=== PATIENT | female | born 1985 | race Caucasian/White ===

== ENCOUNTER → 2016-08-04 | Outpatient (CLI) | payer OTHER ==
[~2016-08-04] MED LIST: ACET-1256 PO; BUPR-79 PO; OXYC1TAB3 PO; TRAM-10 PO
== END | disposition home or self-care (01) ==
LOC: C.LAB 10:38
PROVIDERS: ATTEND Family Medicine
DX: N91.2 Amenorrhea, unspecified (principal)

== ENCOUNTER → 2016-08-10 | Outpatient (CLI) | payer OTHER | END | disposition home or self-care (01) | LOC: C.LAB 12:02 | PROVIDERS: ATTEND Family Medicine | DX: Z34.90 Encounter for supervision of normal pregnancy, unspecified, unspecified trimester (principal) ==

== ENCOUNTER → 2016-09-01 | Outpatient (CLI) | payer OTHER ==
[~2016-09-01] MED LIST changes: -OXYC1TAB3 PO; -TRAM-10 PO
[2016-09-01 17:32] LABS: URINE APPEARANCE CLEAR (CLEAR); URINE BILIRUBIN NEG (NEG); URINE COLOR YELLOW; URINE NITRITE NEG (NEG); URINE PH 7.5 (4.5-7.5); URINE SPECIFIC GRAVITY 1.007 (1.000-1.030); UROBILINOGEN NEG (NEG)
[2016-09-01 17:36] LABS: MANUAL MICROSCOPIC REQUIRED? NO; REVIEW REQ? NO
== END | disposition home or self-care (01) ==
LOC: C.LABSPEC 16:46
PROVIDERS: ATTEND Obstetrics & Gynecology
DX: Z34.81 Encounter for supervision of other normal pregnancy, first trimester (principal)

== ENCOUNTER → 2016-09-06 | Outpatient (CLI) | payer OTHER ==
[2016-09-06 10:21] LABS: BASO % 0.2 %; BASO ABS # 0.02 K/uL (0-0.2); COMPLETE YES; EOS % 0.9 %; HEMATOCRIT 40.7 % (37-47); IG% 0.2 %; LYMPH % 16.1 %; LYMPH ABS # 1.36 K/uL (1.2-3.4); MEAN CELL VOLUME 90.8 fL (80-100); MEAN CORPUSCULAR HEMOGLOBIN 30.4 pg (25-34); MEAN CORPUSCULAR HGB CONC 33.4 g/dl (32-36); MEAN PLATELET VOLUME 9.9 fL (7.4-10.4); MONO % 6.6 %; PLATELET COUNT 240 K/uL (130-400); RED BLOOD COUNT 4.48 M/uL (4.2-5.4); WHITE BLOOD COUNT 8.46 K/uL (4.8-10.8)
[2016-09-08 00:49] LABS: CHLAMYDIA TRACH RNA*** NOT DETECTED (NOT DETECTED); GC (NEIS GONORRHOEAE)RNA** NOT DETECTED (NOT DETECTED)
== END | disposition home or self-care (01) ==
LOC: C.LAB 09:18
PROVIDERS: ATTEND Obstetrics & Gynecology
DX: O09.291 Supervision of pregnancy with other poor reproductive or obstetric history, first trimester (principal)

== ENCOUNTER → 2016-09-06 | Outpatient (CLI) | payer OTHER | END | disposition home or self-care (01) | LOC: C.PAPS 15:08 | PROVIDERS: ATTEND Obstetrics & Gynecology | DX: Z34.81 Encounter for supervision of other normal pregnancy, first trimester (principal) ==

== ENCOUNTER → 2017-01-23 | Outpatient (CLI) | payer OTHER ==
[~2017-01-23] MED LIST changes: +PRENTAB26 PO
[2017-01-23 14:38] LABS: URINE APPEARANCE CLEAR (CLEAR); URINE BILIRUBIN NEG (NEG); URINE COLOR DK YELLOW; URINE EPITHELIAL CELL AUTO 20-30 /lpf (0-5); URINE NITRITE NEG (NEG); URINE SPECIFIC GRAVITY 1.021 (1.000-1.030); UROBILINOGEN NEG (NEG)
[2017-01-23 14:39] LABS: MANUAL MICROSCOPIC REQUIRED? NO; REVIEW REQ? YES
== END | disposition home or self-care (01) ==
LOC: C.LABSPEC 13:46
PROVIDERS: ATTEND Obstetrics & Gynecology
DX: O09.293 Supervision of pregnancy with other poor reproductive or obstetric history, third trimester (principal)

== ENCOUNTER → 2017-02-02 | Outpatient (CLI) | payer OTHER ==
[2017-02-02 13:14] LABS: HEMATOCRIT 38.8 % (37-47)
[2017-02-02 14:53] LABS: CHOLESTEROL/HDL RATIO 2.8
== END | disposition home or self-care (01) ==
LOC: C.LAB 10:10
PROVIDERS: ATTEND Obstetrics & Gynecology
DX: O09.293 Supervision of pregnancy with other poor reproductive or obstetric history, third trimester (principal); Z3A.00 Weeks of gestation of pregnancy not specified

== ENCOUNTER → 2017-03-21 | Outpatient (CLI) | payer OTHER | END | disposition home or self-care (01) | LOC: C.LABSPEC 14:45 | PROVIDERS: ATTEND Obstetrics & Gynecology | DX: Z34.83 Encounter for supervision of other normal pregnancy, third trimester (principal) ==

== ENCOUNTER 2017-04-14 07:27 | Inpatient (IN) | payer OTHER ==
[~2017-04-14] VITALS: Ht 160 cm; Wt 73.2 kg
[~2017-04-14 07:27] MED LIST changes: -PRENTAB26 PO
[2017-04-14 08:00] VITALS: BMI 28.6
[2017-04-14] MEDS ORDERED: PRENTAB26 PO (08:04)
[2017-04-14] MEDS ORDERED: LACTATED RINGER'S 1000ML 500 ML IV PRN ×2 (08:28→15:15)
[2017-04-14] MEDS ORDERED: PENICILLIN G POTASSIUM IV 3 MU in DEXTROSE 5% 100ML 100 ML IV PRN (08:30)
[2017-04-14] MEDS ORDERED: OXYTOCIN 30 UNITS/500ML NSS IV PRN ×2 (08:30→17:15)
[2017-04-14] MEDS ORDERED: PENICILLIN G POTASSIUM IV 6 MU in DEXTROSE 5% 250ML 250 ML IV ONE (08:45)
[2017-04-14] MEDS ORDERED: IV FLUIDS COMPLETED PRN (09:15)
[2017-04-14 09:16] LABS: HEMATOCRIT 38.4 % (37-47); MEAN CELL VOLUME 91.4 fL (80-100); MEAN CORPUSCULAR HEMOGLOBIN 31.2 pg (25-34); MEAN CORPUSCULAR HGB CONC 34.1 g/dl (32-36); MEAN PLATELET VOLUME 10.5 fL (7.4-10.4); PLATELET COUNT 160 K/uL (130-400); WHITE BLOOD COUNT 9.05 K/uL (4.8-10.8)
[2017-04-14 10:17] VITALS: Ht 160 cm; Wt 73.2 kg
[2017-04-14] MEDS ORDERED: BUPIVACAINE 0.25% 30 ML VIAL ONE (14:17)
[2017-04-14] MEDS ORDERED: FENTANYL 2MCG/ML ROPIV 1.25MG/ML 100ML BAG EPI ONE (14:17)
[2017-04-14] MEDS ORDERED: EpHEDrine SULFATE INJ 50 MG/ML AMP ONE (14:17)
[2017-04-14] MEDS ORDERED: FENTANYL CITRATE INJ 50 MCG/1 ML 2 ML VIAL ONE (14:18)
[2017-04-14] MEDS ORDERED: EpHEDrine SULFATE INJ 50 MG/ML AMP IV PRN (15:15)
[2017-04-14] MEDS ORDERED: NALBUPHINE HCL INJ 10 MG/ML AMP IV PRN (15:15)
[2017-04-14] MEDS ORDERED: DiphenhydrAMINE HCL 50 MG/ML VIAL IV PRN (15:15)
[2017-04-14] MEDS ORDERED: ONDANSETRON INJ 2 MG/ML 2 ML VIAL IV PRN (15:15)
[2017-04-14] MEDS ORDERED: NALOXONE HCL INJ 1 MG in SODIUM CHLORIDE 0.9% 1000ML 1,000 ML IV PRN (15:15)
[2017-04-14] MEDS ORDERED: NALOXONE HCL INJ 0.4 MG/1 ML VIAL/CARP IV PRN (15:15)
[2017-04-14] MEDS ORDERED: FENTANYL 2MCG/ML ROPIV 1.25MG/ML 100ML BAG EPI PRN (15:15)
--- NOTE | 2017-04-14 17:06 | Vaginal Delivery Summary ---
Vaginal Delivery Summary 31 yo female EGA of 39+6 weeks presented for induction of labor for borderline AC. Pt progressed to complete under epidural anesthesia and then began to push, delivering a viable male from the ROMY position. No nuchal cord. Nose and mouth suctioned, a spontaneous cry was heard, and the was placed onto the mother's abdomen for stimulation. Delayed cord clamping was performed at the 30 second silver, then double clamped and cut. Cord blood obtained. The placenta was then delivered spontaneously intact with a three-vessel cord. Pitocin was given and the uterus became firm. The vagina was cleared of all clots and debris. The cervix, vagina, and perineum were inspected and a first-degree vaginal laceration was noted. The laceration was repaired in standard fashion with 3-O chromic. Excellent hemostasis was noted. Sponge, instrument, and needle counts were correct x2 at the conclusion of delivery. The mother and baby began recovery in the room, both in stable and good condition. APGARs were 9 and 9. EBL 200 mL. - Yaneli, PGY1 Resident Tracking Resident Involvement: Resident Care Provided Care Provided: OB Delivery (Delivery note)
[2017-04-14] MEDS ORDERED: DIPHTHERIA/TETANUS/PERTUSSIS 0.5 ML SYR/VIAL IM. ONE (17:15)
[2017-04-14] MEDS ORDERED: LANOLIN OINT EXT PRN ×2 (17:15)
[2017-04-14] MEDS ORDERED: ACETAMINOPHEN 325 MG TAB PO PRN (17:15)
[2017-04-14] MEDS ORDERED: BENZOCAINE 20% AER SPR 82.5 GM CAN EXT PRN (17:15)
[2017-04-14] MEDS ORDERED: HYDROCORTISONE ACETATE 25 MG SUPP PR PRN (17:15)
[2017-04-14] MEDS ORDERED: SUPERCREAM 0.870 % 15GM JAR EXT PRN (17:15)
--- NOTE | 2017-04-14 18:49 | Anesthesia Procedure Note ---
Anesthesia Epidural Removal Nt Date & Time Apr 14, 2017 at 18:49 Vital Signs Pain Intensity: 0.0 Notes Mental Status: alert / awake / arousable, participated in evaluation Nausea / Vomiting: adequately controlled Pain: adequately controlled Airway Patency, RR, SpO2: stable & adequate BP & HR: stable & adequate Hydration State: stable & adequate Neuraxial Anesthesia: was administered Anesthetic Complications: no major complications apparent, pt satisfied with anesthetic care Epidural: removed without complications, with tip intact
[2017-04-14] MEDS: DOCUSATE SODIUM 100 MG CAP PO SCH (20:00)
[2017-04-14 20:30] VITALS: BP 112/51; PULSE 73; TEMP 36.8
[2017-04-14] MEDS: IBUPROFEN 600 MG TAB PO PRN (21:00)
--- NOTE | 2017-04-14 23:48 | DELIVERY SUMMARY ---
DATE OF OPERATION: 04/14/2017 The patient is a 31-year-old 4, para 2-0-1-2 white female, EDC of 04/15/2017, who presented for induction of labor for multiparity gestational diabetes mellitus and GBS carrier status. She was begun on Pitocin and membranes ruptured after 2 doses of penicillin were administered. She then progressed quickly to full dilation and pushed effectively over intact perineum for delivery of a viable male . Apgars 9 and 9. Placenta was expressed intact with a 3-vessel cord. A first degree vaginal laceration was repaired with 3-0 chromic in the usual fashion. Blood loss was 200 mL. bleeding was controlled with IV dilute Pitocin. Mother and were doing well after delivery. I attest to the content of the Intraoperative Record and any orders documented therein. Any exception s are noted below.
[2017-04-14 23:50] VITALS: BP 105/67; PULSE 69; TEMP 36.5
[2017-04-15] MEDS: IBUPROFEN 600 MG TAB PO PRN ×4 (01:11→19:44)
[2017-04-15 04:45] VITALS: BP 112/68; PULSE 73; TEMP 36.7
--- NOTE | 2017-04-15 06:23 | Progress Note ---
Subjective Apr 15, 2017. Subjective conversation w/ patient, physical exam, chart review, lab review Ambulation: ambulating normally Voiding: no voiding problems Passing Gas: Yes Diet Tolerance: Regular Diet Lochia: Small Feeding Type: Breast Feeding Pain: Occasional low cramping Comment: Found pt resting comfortably in bed, denies any particular concerns. Review of Systems Constitutional: No fever, No chills Respiratory: No cough, No shortness of breath Cardiac: No chest pain, No edema Abdomen: No nausea, No vomiting, No diarrhea Female : No dysuria Objective Vital Signs Date Time Temp Pulse Resp B/P (MAP) Pulse Ox O2 Delivery O2 Flow Rate FiO2 04/15/17 04:45 36.7 73 20 112/68 04/14/17 23:50 36.5 69 18 105/67 04/14/17 23:50 Room Air 04/14/17 20:30 36.8 73 20 112/51 Physical Exam General Appearance: WELL-APPEARING, WD/WN, NO APPARENT DISTRESS Respiratory/Chest: lungs clear, normal breath sounds Cardiovascular: regular rate, rhythm, no edema Abdomen: normal bowel sounds, non tender, soft Fundus: Firm, Non-Tender, Relation to Umbilicus (at umbilicus) Extremities: normal range of motion, no pedal edema, no calf tenderness Laboratory Results Last 24 Hours Test 04/14/17 08:38 04/15/17 06:14 White Blood Count 9.05 K/uL Red Blood Count 4.20 M/uL Hemoglobin 13.1 g/dL Hematocrit 38.4 % Mean Corpuscular Volume 91.4 fL Mean Corpuscular Hemoglobin 31.2 pg Mean Corpuscular Hemoglobin Concent 34.1 g/dl RDW Standard Deviation 44.2 fL RDW Coefficient of Variation 13.4 % Platelet Count 160 K/uL Mean Platelet Volume 10.5 fL Assessment and Plan Post- Day#: 1 Continue Routine Care: Resident Physician Supervision Note: I was present with Dr. Constantino during the history and exam. I discussed the case with the resident and agree with the findings and plan as documented in the note. Any exceptions or clarifications are listed here: [None] Documented By: Tania Scherer 31F s/p IOL for GDM, now PPD #1. - Blood type O positive. GBS positive, s/p abx x 2. Rubella immune. - Vital signs reviewed and stable. - Pain controlled with motrin.. - No leg swelling or tenderness on calf palpation. Encourage ambulation. - Encourage breast feeding. - Hemoglobin pre-delivery 13.1, post-delivery pending this am. Bleeding has improved. Continue to monitor clinically. - Continue routine post-vaginal delivery care. - Pt agreed with above plan, all current questions answered. Ricardo Constantino MD, PGY1 Loan Analyst Tracking Resident Involvement: Resident Care Provided Care Provided: OB Delivery (OB rounds)
[2017-04-15 06:40] LABS: HEMATOCRIT 38.9 % (37-47)
[2017-04-15] MEDS: DOCUSATE SODIUM 100 MG CAP PO SCH ×2 (07:25→19:44)
[2017-04-15] MEDS: PRENATAL VITAMIN TAB PO SCH (07:25)
[2017-04-15 07:29] VITALS: BP 111/73; PULSE 67; TEMP 36.8
[2017-04-15 11:53] VITALS: BP 110/71; TEMP 36.8
[2017-04-15 15:22] VITALS: BP 107/70; PULSE 75; TEMP 36.8
[2017-04-15] MEDS ORDERED: BISACODYL 5 MG TABEC PO SCH (20:00)
[2017-04-15 23:40] VITALS: BP 100/65; PULSE 66; TEMP 36.8
[2017-04-16] MEDS ORDERED: BISACODYL 10 MG SUPP PR PRN (07:00)
[2017-04-16 07:25] VITALS: BP 106/70; PULSE 76; TEMP 36.8
[2017-04-16] MEDS: DOCUSATE SODIUM 100 MG CAP PO SCH (07:43)
[2017-04-16] MEDS: PRENATAL VITAMIN TAB PO SCH (07:43)
--- NOTE | 2017-04-16 09:35 | Progress Note ---
Subjective Apr 16, 2017. Subjective conversation w/ patient, physical exam Ambulation: ambulating normally Voiding: no voiding problems Passing Gas: Yes Diet Tolerance: Regular Diet Lochia: Moderate Feeding Type: Breast Feeding Review of Systems Constitutional: No problem reported Respiratory: No problem reported Cardiac: No problem reported Breast: No problem reported Abdomen: No problem reported Female : No problem reported Objective Vital Signs Date Time Temp Pulse Resp B/P (MAP) Pulse Ox O2 Delivery O2 Flow Rate FiO2 04/16/17 07:25 36.8 76 18 106/70 04/16/17 07:25 Room Air 04/15/17 23:40 36.8 66 18 100/65 04/15/17 23:40 Room Air 04/15/17 15:22 36.8 75 20 107/70 04/15/17 15:15 Room Air 04/15/17 11:53 36.8 18 110/71 Physical Exam General Appearance: WELL-APPEARING, NO APPARENT DISTRESS Respiratory/Chest: no respiratory distress Cardiovascular: regular rate, rhythm Abdomen: non tender, soft Fundus: Firm Extremities: normal inspection Assessment and Plan Post- Day#: 2 Continue Routine Care: Doing well . Discharge to home. Followup in office 6w. Discharge instructions reviewed.
--- NOTE | 2017-04-16 09:36 | Discharge Instructions ---
Discharge Instructions Date of Service Apr 16, 2017. Admission Reason for Admission: Induction Discharge Discharge Diagnosis / Problem: vaginal delivery Discharge Goals Goal(s): Routine recovery after delivery Activity Recommendations Activity Limitations: per Instructions/Follow-up section . Instructions / Follow-Up Instructions / Follow-Up ACTIVITY RECOMMENDATIONS: * Gradual return to full activity over the next 2-3 weeks. * No lifting - nothing heavier than baby over the next 2-3 weeks. * Do not engage in vigorous exercise, sexual activity or sports until cleared by your physician. * Do not drive or operate any motorized equipment until cleared by your physician. * You may shower/bathe daily. MEDICATIONS: For discomfort or pain, you may use Acetaminophen (Tylenol), Ibuprofen (Advil), or Naproxen (Aleve) following the package directions. For constipation you may use Colace following the package directions. BREAST CARE: If you are not breast feeding: * Wear a supportive bra 24 hours a day for one to two weeks. * Avoid stimulating your breasts and nipples as much as possible during the first few weeks after delivery. * When taking a shower, have the warm water hit your back, not breasts. * When your breasts feel full, apply ice packs. Usually three to four times a day helps ease the discomfort. * Take a mild pain medication (Tylenol / Motrin) when you are uncomfortable. If breast feeding: * Use breast milk to lubricate nipples. Lansinoh cream may be used for sore nipples. You do not need to remove cream prior to breast feeding. If using a different brand of cream, check the label for directions regarding removal of cream prior to nursing. * Wear a supportive bra. * If having problems with breasts or breast feeding, call a farm consultant or your health care provider. EPISIOTOMY CARE: After delivery, if you have an episiotomy (stitches), the following steps will ease discomfort and aid healing. * For the first 24 hours after delivery, place ice packs next to your episiotomy to help reduce swelling. * After the first 24 hour-period, sitz baths, either portable or in the tub, are suggested. A shower with a shower arm sprayed over the episiotomy may be comforting. * Yuliana care should be done after each voiding and bowel movement. Squirt warm water from a plastic bottle over the perineum (region of the body between the anus and urinary opening) and pat dry. * Use Dermoplast to ease discomfort. Shake container. [place] directly over the episiotomy. Place a Tucks on a clean sanitary pad next to your episiotomy. SPECIAL CARE INSTRUCTIONS: When you are discharged from the hospital, it is important for you to follow the instructions listed below: * During the first week at home, you should be able to care for yourself and your baby. In addition, the usual light household activities are encouraged. * Limit your activities to the way you feel. Do not try to clean the house or move furniture. Be sensible. * If you actively engage in sports and have done so up until the time of your delivery, you may resume these activities as soon as you feel able. This may take up to one month or even longer. Use good judgment. * Continue to take your vitamins for at least six weeks after the of your baby. * Your diet need not be limited unless you were on a special diet before your delivery. Breast-feeding mothers need around 2500 calories per day and at least 64-80 ounces of fluid per day (8 to 10 glasses). * You should eat foods from the four major food groups. Crash diets or fad diets are to be avoided. Eating lean meats, fresh fruits and vegetables, low-fat dairy products, high fiber foods and a regular exercise program, will help you get back to your pre- weight without putting your health at risk. * Constipation is sometimes a problem after delivery. Take a mild laxative as needed. If breast feeding, Milk of Magnesia is acceptable to use. You may use a suppository or Fleets enema if no episiotomy. * A daily shower or tub bath is suggested. Be sure to thoroughly and gently dry the perineum. * A bloody vaginal discharge will usually continue until around four weeks post . A small amount of bleeding may continue for as long as six weeks. Vaginal discharge changes from the bright red bleeding after delivery to pink then brownish and finally yellowish-pink before becoming white and disappearing. * Bleeding may increase with activity. Your first period may come in 4-8 weeks. If you are breast feeding, your period may be delayed even longer. * [place] (sex) can begin whenever both you and your partner feel comfortable and do not have any form of genital infection. It is recommended that you wait at least six weeks for internal and external healing to occur. If you have questions, please talk to your health care practitioner. A condom should be used to prevent infection and . * Foreplay, gentle intercourse and lubrication is very important the first several times to prevent pain. A water-based lubricant such as K-Y jelly or Astroglide may be used. * If you have RH negative blood and your baby is RH positive, you will receive RHOGAM by injection prior to discharge. The nurse will give you a card to keep with you that has the date and place that you received RHOGAM after delivery. * During your care, you had a Rubella screen done to check for the presence of rubella antibodies in your blood. If your test was negative, you will receive a Rubella vaccine prior to discharge. This vaccine may cause a fever, soreness at the injection site and flu-like symptoms. If these symptoms persist, notify your health care practitioner. is not advised for one month after a Rubella vaccine. * Verbalizes understanding of car seat law as reviewed with patient nursing. * Car Seat hand-out given and reviewed with patient by nursing. * Shaken baby information reviewed with patient by nursing. Call you doctor if: * Heavy bleeding (saturating several pads an hour) or passing clots the size of your fist. * A fever >101 degrees F (38.3 degrees C) on two occasions four hours apart and /or chills. * Unusual pain in the pelvic or vaginal areas. * "Baby Blues" lasting longer than two weeks. If you have any questions or concerns, call your health care practitioner at . FOLLOW UP VISIT: * Please call the office at to schedule a 6 week examination. It is important you keep this appointment. It is important for you to make arrangements for either yearly or twice yearly check-ups thereafter. Current Hospital Diet Patient's current hospital diet: Regular OB Diet Discharge Diet Recommended Diet: Regular OB Diet Pending Studies Studies pending at discharge: no Laboratory Results Lipid Panel Test 02/02/17 10:31 Range/Units Triglycerides Level 106 0-150 mg/dl Cholesterol Level 218 H 0-200 mg/dl HDL Cholesterol 79 mg/dl Cholesterol/HDL Ratio 2.8 LDL Cholesterol, Calculated 118 mg/dl Medical Emergencies . Who to Call and When: Medical Emergencies: If at any time you feel your situation is an emergency, please call 911 immediately. . Non-Emergent Contact Non-Emergency issues call your: Primary Care Provider, Safety Lead . . "Provider Documentation" section prepared by Esthela Sparrow. . VTE Core Measure Inpt VTE Proph given/why not?: Treatment not indicated
[2017-04-16 16:20] VITALS: BP 110/72; PULSE 97; TEMP 37
[2017-04-16 17:05] VITALS: BP_DIAS 72; PULSE 97; TEMP 37
== END 2017-04-16 17:05 | disposition home or self-care (01) | DRG 775 ==
LOC: C.LD 07:27 → C.OBG 19:19
PROVIDERS: ADMIT Obstetrics & Gynecology; ATTEND Obstetrics & Gynecology
PROC: 10E0XZZ Delivery of Products of Conception, External Approach (ICD-10-PCS; principal; 2017-04-14)
PROC: 3E033VJ Introduction of Other Hormone into Peripheral Vein, Percutaneous Approach (ICD-10-PCS; principal; 2017-04-14)
PROC: 0HQ9XZZ Repair Perineum Skin, External Approach (ICD-10-PCS; principal; 2017-04-14)
DX: O24.429 Gestational diabetes mellitus in childbirth, unspecified control (principal); O70.0 First degree perineal laceration during delivery; Z3A.39 39 weeks gestation of pregnancy; O99.824 Streptococcus B carrier state complicating childbirth; Z37.0 Single live birth

== ENCOUNTER → 2017-10-18 | Outpatient (CLI) | payer OTHER ==
[~2017-10-18] MED LIST changes: +PRENTAB26 PO
== END | disposition home or self-care (01) ==
LOC: C.LAB 15:37
PROVIDERS: ATTEND Family Medicine
DX: N39.0 Urinary tract infection, site not specified (principal)

== ENCOUNTER → 2017-11-28 | Outpatient (CLI) | payer OTHER ==
--- NOTE | 2017-11-28 13:59 | DIAGNOSTIC IMAGING REPORT ---
MRI OF THE BILATERAL TEMPOROMANDIBULAR JOINTS WITHOUT CONTRAST CLINICAL HISTORY: Left-sided temporomandibular joint pain. COMPARISON STUDY: No previous studies for comparison. TECHNIQUE: Utilizing a 1.5 Kathi magnet and dedicated coil, multiplanar, multi echo imaging of the bilateral temporomandibular joints was performed without intravenous contrast in the closed and open mouth positions. FINDINGS: Right temporomandibular joint: Alignment of the right temporomandibular joint is anatomic. The temporomandibular joint disc appears diminutive with increased signal. This suggests a disc tear. There is no disc dislocation. Alignment on the open-mouth view is within normal limits. There is no significant osteoarthritis of the right temporomandibular joint. Left temporomandibular joint: There is abnormal morphology of the left mandibular condyle with flattening. This suggests osteoarthritis. In closed mouth position, the disc is dislocated anteriorly without recapture during open-mouth. The disc is slightly diminished. This may reflect a tear. IMPRESSION: Right temporomandibular joint: 1. Diminutive disc with increased signal which suggests a disc tear. 2. No disc dislocation. Left temporomandibular joint: 1. Anterior dislocation of the disc in closed mouth position without recapture in open-mouth position. 2. Abnormal morphology of the left mandibular condyle with flattening which suggests osteoarthritis. 3. Slightly diminutive disc which suggests a tear. Electronically signed by: Bijan Carranza M.D. 11/28/2017 1:58 PM Dictated Date/Time: 11/28/2017 1:43 PM
== END | disposition home or self-care (01) ==
LOC: C.MRI 12:37
PROVIDERS: ATTEND Family Medicine
DX: R68.84 Jaw pain (principal); M26.632 Articular disc disorder of left temporomandibular joint

== ENCOUNTER → 2018-02-15 | Outpatient (CLI) | payer OTHER | END | disposition home or self-care (01) | LOC: C.LABSPEC 08:50 | PROVIDERS: ATTEND Family Medicine | DX: Z13.9 Encounter for screening, unspecified (principal) ==